=== PATIENT | male | born 1955 | race Caucasian/White ===

== ENCOUNTER 2018-08-06 22:54 | Emergency (ER) | payer MEDICAID ==
[~2018-08-06] VITALS: Ht 182.9 cm; Wt 111.6 kg
[2018-08-06 23:06] VITALS: Ht 182.9 cm; Wt 111.6 kg
[2018-08-07 01:56] VITALS: BP 165/111
== END 2018-08-07 01:56 | disposition home or self-care (01) ==
LOC: ED 22:54
DX: L25.9 Unspecified contact dermatitis, unspecified cause (principal); S60.812A Abrasion of left wrist, initial encounter; I10 Essential (primary) hypertension; Z88.0 Allergy status to penicillin; X58.XXXA Exposure to other specified factors, initial encounter; Y93.89 Activity, other specified; Y92.89 Other specified places as the place of occurrence of the external cause; Y99.8 Other external cause status
CPT/HCPCS: 90715